=== PATIENT | female | born 1975 | race Caucasian/White ===

== ENCOUNTER 2019-04-15 20:13 | Inpatient (IN) | payer MEDICAID ==
[~2019-04-15] VITALS: Ht 157.5 cm; Wt 112.9 kg
--- NOTE | ~2019-04-15 | EC ---
PATIENT:FLORENCIO SCHMID DATE OF SERVICE: 04/15/19 SEX: F MEDICAL RECORD: [id number] DATE OF : [birth year] LOCATION:D.[facility] AGE OF PATIENT: 43 ADMISSION DATE: 04/15/19 REFERRING PHYSICIAN: INTERPRETING PHYSICIAN: HERMAN HARRISON MD ECHOCARDIOGRAM REPORT ECHO CHARGES 4 ECHO COMPLETE Date: 04/18/19 CLINICAL DIAGNOSIS: R/O ENDOCARDITIS ECHOCARDIOGRAPHIC MEASUREMENTS (adult normal given) AC root (d.<3.7cm) 3.2 cm LV Septum d (<1.2 cm> 1.5 cm Valve Excursion 2.3 cm LV Septum (systole) 1.9 cm Left Atria (s.<4.0cm> 3.4 cm LVPW d(<1.2cm) 1.4 cm RV (d.<2.3cm) 2.3 cm LVPW (sytole) 2.0 cm LV diastole(<5.6CM) 5.2 cm MV E-F(>70mm/sec) cm LV systole 2.9 cm LVOT Diameter 2.0 cm MV exc.(>10mm) cm Est.ejection fraction (50-75%) % DOPPLER: LVIT cm/sec A 86.0 cm/sec E 125 cm/sec LA cm/sec RVSP 33.2 mmHg LVOT 123 cm/sec AOP1/2T m/s Asc. Ao 158 cm/sec RVOT 57.0 cm/sec RA cm/sec PA 79.0 cm/sec AV Gradient Peak 10.0 mmHg AV Mean 5.2 mmHg AV Area 2.5 cm MV Gradient Peak 5.4 mmHg MV Mean 2.4 mmHg MV Area cm COMMENTS: Steel Detailer: 1 SUMAYA JOAQUINOE Resident Buyer: 3 Dr. Hwang TAPE# PACS Pericardial Effusion N DATE OF SERVICE: Adequate 2D, color flow, spectral Doppler, and M-mode. LVH is present. LV internal dimensions are normal. Wall motion is normal. EF is greater than or equal to 55%. Aortic valve is tricuspid. No evidence of stenosis by Doppler interrogation. Left atrium normal at 3.4 cm. Mitral valve shows no prolapse. Trace MR. Right-sided chambers are grossly normal. Trace TR. No evidence of endocarditis in all 4 cardiac valves. TRANSINT:[id number] Voice Confirmation ID: [id number] DOCUMENT ID: [id number] ECHOCARDIOGRAM REPORT [id number] FLORENCIO SCHMID GREGORY A MD CC: [id number] DICTATION DATE: 04/19/19 1029 CHANGE MANAGEMENT COORDINATOR: 04/19/19 1231 ADM IN [facility] [address] [id number]
[2019-04-15] MEDS ORDERED: PROTONIX20 MG (20:19)
[2019-04-15] MEDS ORDERED: ALBUTEROL SULF8.5 GM INH (20:19)
[2019-04-15] MEDS ORDERED: COZAAR25 MG PO (20:20)
[2019-04-15] MEDS ORDERED: CARAFATE1 G PO (20:20)
[2019-04-15] MEDS ORDERED: ZOLOFT50 MG PO (20:20)
--- NOTE | 2019-04-15 20:20 | NUR ---
PT AMBULATORY TO BATHROOM AT THIS TIME. PT CHANGED INTO GOWN AT THIS TIME.
--- NOTE | 2019-04-15 21:10 | NUR ---
DR MUNGUIA DENIES NEED FOR NG TUBE AT THIS TIME
[2019-04-15] MEDS ORDERED: CLARITIN 10 MG10 MG PO (22:30)
[2019-04-15] MEDS ORDERED: ZYRTEC10 MG PO (22:31)
[2019-04-15 22:53] VITALS: BP 120/64; BMI 45.6
--- NOTE | 2019-04-15 23:12 | NUR ---
ADMISSION ASSESSMENT COMPLETE.
[2019-04-16 01:14] VITALS: BP 103/54
[2019-04-16 04:54] LABS: BASOPHILS 0.1 % (0-2); EOSINOPHILS 0.1 % (0-7); HEMATOCRIT 33.6 % (36.0-48.0); HEMOGLOBIN 10.9 g/dL (12-16); IMMATURE GRANULOCYTES 0.2 % (0-5); LYMPHOCYTES 7.8 % (15-50); MCH 28.2 pg (26.0-34.0); MCHC 32.4 g/dL (31.0-37.0); MCV 86.8 fL (80.0-100.0); MEAN PLATELET VOLUME 8.7 fL (7.4-10.4); NEUTROPHILS 85.8 % (40-80); PLATELET COUNT 175 10x3/uL (130-400); RBC 3.87 10x6/uL (4.00-5.40); RDW 14.3 % (11.5-14.5); WBC 11.9 10x3/uL (4.8-10.8)
[2019-04-16 05:00] LABS: ANION GAP 7.4 mmol/L (8-16); CALCIUM 8.3 mg/dL (8.5-10.1); CARBON DIOXIDE 28.1 mmol/L (21.0-32.0); CREATININE - SERUM 0.9 mg/dL (0.6-1.3); POTASSIUM - SERUM 3.5 mmol/L (3.5-5.1)
[2019-04-16 05:16] VITALS: BP 111/50
[2019-04-16 08:16] VITALS: BP 128/70
--- NOTE | 2019-04-16 10:41 | NUR ---
PT ALERT X 4. BREATH SOUNDS CLEAR BILAT, 2L O2 PER NC. IV TO RIGHT AC, SALINE LOCKED. IV TO LEFT AC, PATENT, DRESSING CDI. PT REPORTING PAIN OF 8/10, POMOLOGY TEACHER IN PLACE, REMINDED PT TO USE POMOLOGY TEACHER NEEDED, WILL MONITOR. BOWEL SOUNDS HYPOACTIVE TO ALL PULLIAM, TENDER TO LEFT SIDE. PT GIVEN WATER AND APPLE JUICE. BED LOW, CALL LIGHT IN REACH. NO OTHER NEEDS AT THIS TIME.
[2019-04-16 12:49] VITALS: BP 125/72
--- NOTE | 2019-04-16 13:34 | NUR ---
IV TO RIGHT FOREARM INFILTRATED. MOVED LINE BACK TO LEFT AC. IV TO RIGHT FOREARM DC'D TIP INTACT.
[2019-04-16 16:41] VITALS: BP 126/74
--- NOTE | 2019-04-16 19:47 | NUR ---
PATIENT TEMPERATURE 102.0. RECEIVED IN REPORT THAT [facility] HAD CALLED AND REPORTED THAT PATIENT HAD GRAM POSITIVE COCCI IN CLUSTERS. NO CULTURES OBTAINED YET. PAGED DR. RAMSEY TO RELAY INFORMATION.
[2019-04-16 20:00] VITALS: BP 124/76
--- NOTE | 2019-04-16 20:15 | NUR ---
DR. RAMSEY RETURNED PAGE. RECEIVED ORDERS FOR BLOOD AND URINE CULTURES WELL URINALYSIS. ALSO RECEIVED ORDERS FOR TYLENOL 650 MG EVERY FOUR HOURS. RECEIVED ORDERS TO DC FLAGYL AFTER CURRENT ADMINISTRATION IS FINISHED AND TO DC LEVAQUIN AND START VANCO 1 GM Q 12 (PHARM TO DOSE) AND MERREM 1G Q 8. INSTRUCTED PATIENT ON CLEAN CATCH URINE SAMPLE AND TO NOTIFY NURSE WHEN PATIENT HAS LEFT SAMPLE IN CLEAN [place] HAT. ALSO DISCUSSED MEDICATIONS WITH PATIENT. PT VERBALIZES UNDERSTANDING.
--- NOTE | 2019-04-16 21:35 | NUR ---
TEMPERATURE NOW 98.9
[2019-04-16 22:07] LABS: COLOR STRAW (YELLOW)
[2019-04-16 22:08] LABS: APPEARANCE CLEAR (CLEAR); BILIRUBIN NEGATIVE (NEGATIVE); GLUCOSE NEGATIVE (NEGATIVE); KETONE NEGATIVE (NEGATIVE); NITRITE NEGATIVE (NEGATIVE); PROTEIN NEGATIVE (NEGATIVE); UROBILINOGEN NORMAL (NORMAL)
[2019-04-16 22:09] LABS: BACTERIA FEW /hpf (NONE SEEN); EPITHELIAL CELLS 0-5 /hpf (0-5); RED CELLS - URINE OCC /hpf (0-5); WHITE CELLS - URINE OCC /hpf (0-5)
[2019-04-17] VITALS: BP 111/57
--- NOTE | 2019-04-17 03:41 | NUR ---
I have reviewed this patient and I concur with the Shift Assessment completed by the Licensed Practical Nurse today this shift.
[2019-04-17 04:00] VITALS: BP 142/67
[2019-04-17 04:07] LABS: BASOPHILS 0.1 % (0-2); EOSINOPHILS 0.5 % (0-7); HEMATOCRIT 32.5 % (36.0-48.0); HEMOGLOBIN 10.4 g/dL (12-16); IMMATURE GRANULOCYTES 0.3 % (0-5); LYMPHOCYTES 17.1 % (15-50); MCV 87.4 fL (80.0-100.0); MONOCYTES 7.3 % (2-11); NEUTROPHILS 74.7 % (40-80); PLATELET COUNT 182 10x3/uL (130-400); RBC 3.72 10x6/uL (4.00-5.40); RDW 14.2 % (11.5-14.5)
[2019-04-17 04:21] LABS: CALCIUM 8.4 mg/dL (8.5-10.1); CARBON DIOXIDE 28.7 mmol/L (21.0-32.0); CREATININE - SERUM 0.9 mg/dL (0.6-1.3); POTASSIUM - SERUM 3.7 mmol/L (3.5-5.1)
--- NOTE | 2019-04-17 04:55 | NUR ---
LEFT AC IV LEAKING. D/C'D WITH TIP INTACT/ RESITED A 22G TO THE RIGHT UPPER FOREARM. ATTEMPTED 2 WITH 20G BUT VEINS COULD NOT SUSTAIN ABD "BLEW". PATIENT REPEATEDLY STATED SHE IS A "HARD STICK" AND HAD CHEST PORT AT ONE TIME. RIGHT UPPER ARM IS PATENT AND FLUSHES WELL WITH GOOD RETURN.
[2019-04-17 08:20] VITALS: BP 128/65
--- NOTE | 2019-04-17 08:24 | NUR ---
PT ALERT X 4. BREATH SOUNDS CLEAR BILAT, 2L O2 PER NC. ABDOMEN TENDER TO LEFT SIDE. PT REPORTING PAIN OF 6/10, TRACTOR MECHANIC APPRENTICE IN PLACE, WILL MONITOR. FAMILY AT BEDSIDE. BED LOW, CALL LIGHT IN REACH. NO OTHER NEEDS AT THIS TIME
[2019-04-17 12:39] VITALS: BP 129/66
[2019-04-17 13:38] VITALS: Ht 157.5 cm; Wt 112.9 kg
--- NOTE | 2019-04-17 17:10 | NUR ---
PT AWAKENING, OPA OUT, AJAY COTA INITIATED
[2019-04-17 17:37] VITALS: BP 104/67
[2019-04-17 20:00] VITALS: BP 131/90
[2019-04-18] VITALS: BP 121/48; BP 141/95
--- NOTE | 2019-04-18 02:32 | NUR ---
2000) REC'D. AT [facility] [place] SHIFT AAQ X3.ASSISTED TO BATHROOM FATMATA WELL WITH MINIMAL ASSIST.ABDOMINAL BINDER INTACT TO SURGICAL SITE WITH MANUEL DRAIN IN PLACE DRAINING BLOOD TINGED SEROUS DRANINAGE.
[2019-04-18 04:00] VITALS: BP 121/68
[2019-04-18 05:11] LABS: CALC OSMOLALITY 282 mosm/kg (275-300); CREATININE - SERUM 0.8 mg/dL (0.6-1.3); GLUCOSE 122 mg/dL (74-106); SODIUM 143 mmol/L (136-145); UREA NITROGEN 5 mg/dL (7-18); eGFR NON AFRICAN AMERICAN 84 mL/min (90-120)
[2019-04-18 05:12] LABS: CALCIUM 8.5 mg/dL (8.5-10.1); CARBON DIOXIDE 27.3 mmol/L (21.0-32.0); CHLORIDE - SERUM 108 mmol/L (98-107)
[2019-04-18 06:37] LABS: BASOPHILS 0.2 % (0-2); EOSINOPHILS 0 % (0-7); HEMATOCRIT 31.8 % (36.0-48.0); HEMOGLOBIN 10.4 g/dL (12-16); IMMATURE GRANULOCYTES 0.4 % (0-5); LYMPHOCYTES 8.9 % (15-50); MCH 27.9 pg (26.0-34.0); MCHC 32.7 g/dL (31.0-37.0); MEAN PLATELET VOLUME 8.9 fL (7.4-10.4); MONOCYTES 6.5 % (2-11); RBC 3.73 10x6/uL (4.00-5.40)
[2019-04-18 06:46] LABS: MCV 85.3 fL (80.0-100.0); PLATELET COUNT 231 10x3/uL (130-400); WBC 12.8 10x3/uL (4.8-10.8)
--- NOTE | 2019-04-18 08:07 | NUR ---
I have reviewed this patient and I concur with the Shift Assessment completed by the Licensed Practical Nurse today this shift.
--- NOTE | 2019-04-18 08:10 | OP ---
PATIENT NAME: FLORENCIO SCHMID MEDICAL RECORD: [id number] :79 LOCATION:D.MS [id number] ADMISSION DATE:04/15/19 SURGEON: DONTA RAMSEY MD DATE OF OPERATION: 04/17/2019 PREOPERATIVE DIAGNOSES: 1. Recurrent ventral incisional hernia. 2. Bacteremia. 3. Morbid obesity. POSTOPERATIVE DIAGNOSES: 1. Recurrent ventral incisional hernia. 2. Bacteremia. 3. Morbid obesity. PROCEDURE: Ventral hernia repair with Ventralight ST 13.8- x 17.8-cm mesh. SURGEON: Donta Ramsey MD REPORT OF PROCEDURE: The patient's abdomen was prepped and draped in sterile fashion. A transverse incision was made in the left lower quadrant overlying the hernia area. Electrocautery was used to dissect through the subcutaneous tissues and we eventually encountered a hernia sac. This hernia sac was opened up and we entered the abdominal cavity. Once we dissected down this hernia sac, we could see in the abdominal cavity. There was concern on the previous CT scan of possible incarceration of the small bowel, but all the small bowel was run from the terminal ileum to the ligament of Treitz and this appeared to be normal caliber with no signs of any incarceration, strangulation, masses, or lesions. The small bowel was placed back into the abdominal cavity. We began taking the soft tissues off of the patient's fascia anteriorly, and upon doing this, we encountered multiple hernia defects in the left lower quadrant. At least 7 defects were encountered. Eventually, we unroofed all of these defects other than the most superior one and connected these, making one large defect. The defect was at least 10 cm in greatest diameter. The tissues were freed up above and below on all sides and any omentum that was adherent to the tissues were taken down using electrocautery. We eventually placed a 13.8- x 17.8-cm Ventralight ST mesh in an underlay fashion and sutured it down on all 4 sides using multiple interrupted #0 Prolenes. The mesh appeared to rest in good position. There was no sign of any bleeding. We irrigated out the wound thoroughly with normal saline. We then reapproximated the fascia using running #1 loop PDS's times 2 with good approximation of the tissue. We incorporated bites of the top layer of the fascia with this PDS. We irrigated out one last time and assured there was no sign of any bleeding, which there was none. We then placed a 15-Solomon Islander round Phil drain into the subcutaneous space and sutured it down with 2-0 Prolene. The subcutaneous tissues were all reapproximated with multiple interrupted 3-0 Vicryls and the skin was closed with running subcutaneous 5-0 Monocryl. We dressed the wound and then placed an abdominal binder. COMPLICATIONS: None. CONDITION: Stable. ANESTHESIA: General endotracheal and local. OPERATIVE REPORT [id number] FLORENCIO SCHMID BLOOD LOSS: 50 mL. TRANSINT:[id number] Voice Confirmation ID: [id number] DOCUMENT ID: [id number] DONTA RAMSEY MD at 0810 CC: [id number] DICTATION DATE: 04/17/19 1635 ELECTRIC MOTOR MECHANIC: 04/17/19 1848 ADM IN [facility] [address] [place] [address]
--- NOTE | 2019-04-18 08:45 | NUR ---
AWAKE AND ALERT. ORIENTED X3. UP TO BSC WITH ONE PERSON ASSIST. VOIDED CLEAR YELLOW URINE WITHOUT DIFFICULTY. SKIN CARE PER STAFF. REPOSITIONED IN BED FOR COMFORT. LUNGS ARE CLEAR BUT DIMINISHED THROUGHOUT. SAT WAS 86% WHILE UP TO BSC WITHOUT O2. WILL MONITOR. SKIN IS INTACT WITHOUT REDNESS XCEPT INCISION TO LEFT LOWER QUAD WHICH HAS A DRY INTACT DRESSING IN PLACE. MANUEL PATENT WITH SEROUS SANGUINESS DRAINAGE NOTED. IV TO LEFT FOREARM PATENT WITHOUT REDNESS AT INSERTION SITE. INSTRUCTED IN USE OF IS WA. DENIES NEEDS. BREAKFAST TRAY ORDERED WITH REGULAR DIET.
[2019-04-18 08:48] VITALS: BP 110/59
--- NOTE | 2019-04-18 11:10 | NUR ---
IV TO LEFT WRIST INFILTRATED. D/C WITH CATHETER INTACT. WARM MOIST HEAT APPLIED TO AREA. RESITED TO RIGHT FOREARM AFTER ONE ATTEMPT WITH 22G.
--- NOTE | 2019-04-18 13:05 | NUR ---
REQUESTED AND GIVEN ONE HYDROCODONE PO FOR C/O RIGHT LEG PAIN LEVEL 10. WILL MONITOR.
--- NOTE | 2019-04-18 13:26 | NUR ---
AMBULATED 50 FEET WITH PT. CLEARED FOR UP AD ROB
[2019-04-18 13:47] VITALS: BP 127/47
[2019-04-18 16:44] VITALS: BP 114/51
--- NOTE | 2019-04-18 19:34 | NUR ---
ATE ALL OF SUPPER. NO CHANGES NOTED. DENIES NEEDS.
[2019-04-18 22:24] VITALS: BP 97/514
[2019-04-19 03:48] VITALS: BP 103/57
--- NOTE | 2019-04-19 05:00 | NUR ---
I have reviewed this patient and I concur with the Shift Assessment completed by the Licensed Practical Nurse today this shift.
[2019-04-19 06:49] VITALS: BP 109/56
[2019-04-19 07:20] LABS: BASOPHILS 0.1 % (0-2); EOSINOPHILS 2.2 % (0-7); HEMATOCRIT 30.6 % (36.0-48.0); HEMOGLOBIN 9.9 g/dL (12-16); IMMATURE GRANULOCYTES 0.2 % (0-5); LYMPHOCYTES 12.3 % (15-50); MCH 27.8 pg (26.0-34.0); MCHC 32.4 g/dL (31.0-37.0); MONOCYTES 7.5 % (2-11); NEUTROPHILS 77.7 % (40-80); PLATELET COUNT 242 10x3/uL (130-400); RBC 3.56 10x6/uL (4.00-5.40); RDW 14.2 % (11.5-14.5); WBC 9.6 10x3/uL (4.8-10.8)
--- NOTE | 2019-04-19 07:33 | NUR ---
AWAKE AND ALERT. ORIENTED X3. NO C/O AT THIS TIME. LUNGS ARE CLEAR BUT DIMINISHED THROUGHOUT BUT IMPROVED FROM YESTERDAY. SKIN IS INTACT WTIHOUT REDNESS EXCEPT INCISION TO LEFT LOWER QUAD WHICH HAS A DRY INTACT DRESSING IN PLACE. MANUEL PATENT WITH SEROUS SANGUINESS DRAINAGE NOTED. IV TO RIGHT FOREARM IS PATENT WTIIHOUT REDNESS AT INSERTION SITE. DENIES NEEDS. VISITOR AT BEDSIDE.
[2019-04-19 07:37] LABS: CALC OSMOLALITY 281 mosm/kg (275-300); CALCIUM 8.1 mg/dL (8.5-10.1); CARBON DIOXIDE 26.9 mmol/L (21.0-32.0); CHLORIDE - SERUM 106 mmol/L (98-107); CREATININE - SERUM 0.8 mg/dL (0.6-1.3); GLUCOSE 97 mg/dL (74-106); POTASSIUM - SERUM 3.2 mmol/L (3.5-5.1); SODIUM 142 mmol/L (136-145); UREA NITROGEN 9 mg/dL (7-18); eGFR NON AFRICAN AMERICAN 84 mL/min (90-120)
[2019-04-19 09:37] VITALS: BP 85/43
[2019-04-19 10:17] VITALS: BP 85/43
[2019-04-19] MEDS ORDERED: HYDROCODON-ACE1 EA10 PO (13:02)
[2019-04-19] MEDS ORDERED: CIPRO500 MG PO (13:03)
--- NOTE | 2019-04-19 15:11 | MORECARE ---
CASE MANAGEMENT DISCHARGE SUMMARY PATIENT: FLORENCIO SCHMID UNIT: [id number] ADM DATE: 04/15/19 AGE: 43 : [birth year] SEX: F ROOM/BED: D.2202 AUTHOR: GREYSON DELANEY PHYSICIAN: REFERRING PHYSICIAN: DONTA RAMSEY MD DATE OF SERVICE: 04/19/19 Discharge Plan Patient Name: FLORENCIO SCHMID Facility: [facility]:[place] : 1975 Planned Disposition: Home Health Service Anticipated Discharge Date: Discharge Date: Expected LOS: Initial Reviewer: [email or web address] Initial Review Date: 04/15/2019 Generated: 04/19/19 4:10 pm Comments DCP- Discharge Planning Updated by [email or web address]: Kathi Hayes on 04/19/19 2:[address] Patient Name: FLORENCIO SCHMID Admission Status: ER Accout number: [id number] Admission Date: 04-15-2019 : 1975 Admission Diagnosis:OTHER AND UNSP VENTRAL HERNIA WITH OBSTRUCTION, W/O ELIAZAR Attending: DONTA RAMSEY Current LOS: 4 Anticipated DC Date: Planned Disposition: Home Health Service Primary Insurance: [facility] PRIVATE OPTIONS [facility] Discharge Planning Comments: CM met with patient to complete initial dc planning assessment. CM educated patient on the CM role and verbal consent given by patient to complete assessment. Patient lives at home in [place] with her where she is independent with her care. At discharge patient plans to return home and feels this is a safe discharge. CM discussed availability of home health, rehab services, and medical equipment. She is current with [facility] in [place] and has home o2 and portable o[place] [facility] [place]. Her will be the one to drive her home. Patient denied known discharge needs at this time. CM will continue to follow and will assist as needed with dc plans/needs. Sand Mill Grinder: Kathi Hayes DCPIA - Discharge Planning Initial Assessment Updated by [email or web address]: Kathi Hayes on 04/19/19 3:03 pm * Is the patient Alert and Oriented? Yes * How many steps to enter\exit or inside your home? * [facility] * Pharmacy [facility] * Preadmission Environment Home with Family * ADLs Independent * Equipment Oxygen * Other Equipment PORTABLE AND HOME O2 * List name and contact numbers for known caregivers / representatives who currently or will assist patient after discharge: JOHN [phone] * Verbal permission to speak to the caregivers and representatives has been obtained from the patient. N/A * Community resources currently utilized None * Additional services required to return to the preadmission environment? No * Can the patient safely return to the preadmission environment? Yes * Has this patient been hospitalized within the prior 30 days at any hospital? No External Providers External Provider: [facility] Next Contact Date: Service Request Date: Service Type: Resolution: Reviewer: Comments: Coverage Notice Reviewer: [email or web address] Ronnell Hayes Notice Issued Date-Time: 04/19/2019 15:00 Notice Type: Patient Choice Letter Notice Delivered To: Patient Relationship to Patient: Solar Sales Energy Advisor Name: Delivery Method: HAND - Hand Delivered Annalee Days: Prior Verbal Notification: Recipient Understood Notice: Yes Recipient Signature: Yes Med Rec Note Co-signed by Attending: Coverage Notice Comment: mary jo to continue with [facility] in [place] and dme Patient Name: FLORENCIO SCHMID Page [phone] at 1511 All edits/amendments must be made on the electronic document DICTATION DATE: 04/19/191509 DEVICE TEST ENGINEER: DEEPAK 04/19/191509 RPT#: [id number] DC DATE: STATUS: ADM IN [facility] [address] [place] [address] END OF REPORT
--- NOTE | 2019-04-19 15:18 | MORECARE ---
CASE MANAGEMENT DISCHARGE SUMMARY PATIENT: FLORENCIO SCHMID UNIT: [id number] ADM DATE: 04/15/19 AGE: 43 : [birth year] SEX: F ROOM/BED: D.220 AUTHOR: GREYSON DELANEY PHYSICIAN: REFERRING PHYSICIAN: DONTA RAMSEY MD DATE OF SERVICE: 04/19/19 Discharge Plan Patient Name: FLORENCIO SCHMID Facility: [facility]:[place] : 1975 Planned Disposition: Home Health Service Anticipated Discharge Date: Discharge Date: Expected LOS: Initial Reviewer: [email or web address] Initial Review Date: 04/15/2019 Generated: 04/19/19 4:18 pm Comments DCP- Discharge Planning Updated by [email or web address]: Kathi Hayes on 04/19/19 2:[address] spoke with Maura at [employer] to let her know that the patient will be discharging home DCP- Discharge Planning Updated by [email or web address]: Kathi Hayes on 04/19/19 2:[address] Patient Name: FLORENCIO SCHMID Admission Status: ER Accout number: [id number] Admission Date: 04-15-2019 : 1975 Admission Diagnosis:OTHER AND UNSP VENTRAL HERNIA WITH OBSTRUCTION, W/O ELIAZAR Attending: DONTA RAMSEY Current LOS: 4 Anticipated DC Date: Planned Disposition: Home Health Service Primary Insurance: [place] PRIVATE OPTIONS [facility] Discharge Planning Comments: CM met with patient to complete initial dc planning assessment. CM educated patient on the CM role and verbal consent given by patient to complete assessment. Patient lives at home in [place] with her where she is independent with her care. At discharge patient plans to return home and feels this is a safe discharge. CM discussed availability of home health, rehab services, and medical equipment. She is current with [facility] in [place] and has home o2 and portable o2 from [facility] in [place]. Her will be the one to drive her home. Patient denied known discharge needs at this time. CM will continue to follow and will assist as needed with dc plans/needs. Elevator Examiner And Adjuster: Kathi Hayes DCPIA - Discharge Planning Initial Assessment Updated by [email or web address]: Kathi Hayes on 04/19/19 3:03 pm * Is the patient Alert and Oriented? Yes * How many steps to enter\exit or inside your home? * PCP [facility] * [facility]acy [facility] * Preadmission Environment Home with Family * ADLs Independent * Equipment Oxygen * Other Equipment PORTABLE AND HOME O2 * List name and contact numbers for known caregivers / representatives who currently or will assist patient after discharge: JOHN [phone] * Verbal permission to speak to the caregivers and representatives has been obtained from the patient. N/A * Community resources currently utilized None * Additional services required to return to the preadmission environment? No * Can the patient safely return to the preadmission environment? Yes * Has this patient been hospitalized within the prior 30 days at any hospital? No Coverage Notice Reviewer: [email or web address] Ronnell Hayes Notice Issued Date-Time: 04/19/2019 15:00 Notice Type: Patient Choice Letter Notice Delivered To: Patient Relationship to Patient: Straight Cutter Name: Delivery Method: HAND - Hand Delivered Annalee Days: Prior Verbal Notification: Recipient Understood Notice: Yes Recipient Signature: Yes Med Rec Note Co-signed by Attending: Coverage Notice Comment: mary jo to continue with [facility] [place] and dme Last DP export: 04/19/19 2:11 p Patient Name: FLORENCIO SCHMID Page [phone] at 1518 All edits/amendments must be made on the electronic document DICTATION DATE: 04/19/191517 PLANT PROTECTION SUPERVISOR: DEEPAK 04/19/198 RPT#: [id number] DC DATE: STATUS: ADM IN [facility] [address] [place] [address] END OF REPORT
--- NOTE | 2019-04-19 15:30 | NUR ---
DISCHARGED TO HOME AMBULATORY WITH . DISCHARGE INSTRUCTIONS GIVEN BOTH VERBALLY AND WRITTEN. ALL QUESTIONS ANSWERED. PATIENT VERBALIZED UNDERSTANDING OF SAME. NEEDED PRESCRIPTIONS GIVEN TO PATIENT. IV TO RIGHT FOREARM D/C WITH CATHETER INTACT. ALL BELONGINGS WITH PATIENT.
== END 2019-04-19 15:30 | disposition home or self-care (01) | DRG 354 ==
LOC: D.ER 20:13 → D.MS 21:26 → D.SDCHOLD 04-17 10:19 → D.MS 04-17 10:25
PROVIDERS: ADMIT Surgery; ATTEND Surgery
PROC: 0WUF4JZ Supplement Abdominal Wall with Synthetic Substitute, Percutaneous Endoscopic Approach (ICD-10-PCS; principal; 2019-04-17 10:15)
DX: K43.6 Other and unspecified ventral hernia with obstruction, without gangrene (principal); Z68.41 Body mass index [BMI] 40.0-44.9, adult; R78.81 Bacteremia; E66.01 Morbid (severe) obesity due to excess calories; J44.9 Chronic obstructive pulmonary disease, unspecified

== ENCOUNTER 2019-05-29 04:23 | Inpatient (IN) | payer MEDICAID ==
[~2019-05-29] VITALS: Ht 157.5 cm; Wt 108.9 kg
--- NOTE | ~2019-05-29 | DS ---
PATIENT:FLORENCIO SCHMID :[birth year] MEDICAL RECORD: [id number] DISCHARGE SUMMARY ADMISSION DATE: 05/29/19 DISCHARGE DATE: 06/01/19 DATE OF ADMISSION: 05/29/2019 DATE OF DISCHARGE: 06/01/2019. ADMISSION DIAGNOSES: 1. Left lower quadrant fluid collection status post ventral hernia repair. 2. Sepsis. 3. Chronic obstructive pulmonary disease. 4. Morbid obesity. DISCHARGE DIAGNOSES: 1. Left lower quadrant fluid collection status post ventral hernia repair. 2. Sepsis. 3. Chronic obstructive pulmonary disease. 4. Morbid obesity. PROCEDURE: CT-guided subcutaneous drain placement with removal of 600 mL of cloudy, not purulent fluid on 05/29/2019. REPORT OF HOSPITALIZATION: The patient was admitted to the hospital through the ER with fevers up to 102 with signs of sepsis and a large fluid collection on CT scan overlying a recent hernia repair with mesh. The patient was set up with interventional radiology for CT-guided drainage of this left lower quadrant fluid collection which removed 600 mL of cloudy serous fluid. The patient was placed on vancomycin for some cellulitis to the skin. The patient's condition improved significantly. Eventually, the fluid that was present grew out some gram-positive cocci consistent with Staphylococcus. The patient was eventually set up for discharge home with the drain in place as it was putting out about 200 mL per day of clear serous fluid. There was no sign of any recurrence of the hernia, and with the patient pain and overall condition improving significantly, she was felt to be stable for discharge home. She was tolerating a diet well with no nausea or vomiting. DISCHARGE INSTRUCTIONS: Return to clinic or call with any questions or concerns, fevers, chills, nausea, vomiting, or worsening abdominal pain. ACTIVITIES: No heavy lifting or straining for 6 weeks status-post surgery. DISCHARGE MEDICATIONS: Resume home meds with the inclusion of doxycycline 100 mg p.o. q.12 hours. TRANSINT:[id number] Voice Confirmation ID: [id number] DOCUMENT ID: [id number] DISCHARGE SUMMARY REPORT [id number] FLORENCIO SCHMID CHRISTIAN MD CC: [id number] DICTATION DATE: 08/08/19 1359 SHOE DESIGNER: 08/09/19 0020 DIS IN 06/01/19 [place] [address]
[~2019-05-29 04:23] MED LIST: ALBUTEROL SULF8.5 GM INH; CARAFATE1 G PO; CIPRO500 MG PO; CLARITIN 10 MG10 MG PO; COZAAR25 MG PO; HYDROCODON-ACE1 EA10 PO; PROTONIX20 MG PO; ZOLOFT50 MG PO; ZYRTEC10 MG PO
[2019-05-29 06:05] VITALS: BP 92/57; BMI 44.0
--- NOTE | 2019-05-29 06:18 | NUR ---
ADMISSION ASSESSMENT COMPLETE. LLQ REDDENED AND SWOLLEN. NO OPENING OR DRAINAGE. PT REPORTS ELEVATED TEMP STARTING THE NIGHT SHE HAD MANUEL DRAIN REMOVED, 1 WEEK AGO. HAS HAD FEVER, NAUSEA AND DECREASED APPETITE SINCE.
[2019-05-29] MEDS ORDERED: KLONOPIN0.5 MG PO (06:25)
[2019-05-29] MEDS ORDERED: SYMBICORT 16010.2 GM INH (06:26)
--- NOTE | 2019-05-29 07:00 | NUR ---
ALERT AND ORIENTED, RESTING IN BED. NO C/O PAIN. NO S/S OF ACUTE DISTRESS NOTED. ON 2L O2, NC. LLQ REDNESS AND SWELLING. IV TO LEFT AC, NS INFUSING @ 125ML/HR. SITE PATENT WITHOUT REDNESS OR SWELLING. DILAUDID PETROLEUM REFINING FIRER MANAGING PAIN AT THIS TIME. PT DENIES ANY NEEDS AT THIS TIME. CALL LIGHT IN REACH. WILL CONTINUE TO MONITOR.
[2019-05-29 08:15] VITALS: BP 88/50
--- NOTE | 2019-05-29 10:47 | NUR ---
I have reviewed this patient and I concur with the Shift Assessment completed by the Licensed Practical Nurse today this shift.
[2019-05-29 11:31] LABS: BASOPHILS 0.1 % (0-2); EOSINOPHILS 0.9 % (0-7); HEMATOCRIT 27.9 % (36.0-48.0); HEMOGLOBIN 8.8 g/dL (12-16); IMMATURE GRANULOCYTES 1.4 % (0-5); MCH 27.2 pg (26.0-34.0); MCHC 31.5 g/dL (31.0-37.0); MCV 86.4 fL (80.0-100.0); MEAN PLATELET VOLUME 7.9 fL (7.4-10.4); MONOCYTES 6.4 % (2-11); NEUTROPHILS 83.2 % (40-80); RBC 3.23 10x6/uL (4.00-5.40); RDW 15.1 % (11.5-14.5); WBC 15.4 10x3/uL (4.8-10.8)
[2019-05-29 11:34] LABS: CALC OSMOLALITY 272 mosm/kg (275-300); CALCIUM 8.6 mg/dL (8.5-10.1); CARBON DIOXIDE 27.8 mmol/L (21.0-32.0); CHLORIDE - SERUM 102 mmol/L (98-107); CREATININE - SERUM 0.8 mg/dL (0.6-1.3); GLUCOSE 101 mg/dL (74-106); PLATELET COUNT 533 10x3/uL (130-400); POTASSIUM - SERUM 3.9 mmol/L (3.5-5.1); SODIUM 137 mmol/L (136-145); UREA NITROGEN 9 mg/dL (7-18); eGFR NON AFRICAN AMERICAN 84 mL/min (90-120)
[2019-05-29 11:39] LABS: APTT 31.1 SECONDS (22.8-39.4); INR 1.38 (0.85-1.17); PROTIME 16.4 SECONDS (11.6-15.0)
[2019-05-29 12:53] VITALS: Ht 157.5 cm; Wt 108.9 kg
[2019-05-29 17:30] VITALS: BP 130/78
[2019-05-29 18:34] VITALS: BP 122/64
--- NOTE | 2019-05-29 20:00 | NUR ---
A/O WITH NO SIGNS OF ACUTE DISTRESS. IV TO THE LT AC WITH NO REDNESS OR SWELLING NOTED. O2 @2L VIA NC. DRAIN NOTED TO THE RLQ WITH SEROSANGUINEOUS DISCHARGE. SOME REDNESS AND SWELLING NOTED IN THE LOWER ABDOMEN. CALLED MD TO NOTIFY OF PENICILLIN ALLERGY. WAS TOLD TO CANCEL ZOZYN ORDER AND JUST GIVE VANC. DENIES FURTHER NEEDS. CONTINUE WITH PLAN OF CARE.
[2019-05-29 20:34] VITALS: BP 148/74
[2019-05-29 23:35] LABS: APPEARANCE SL CLDY (CLEAR); BILIRUBIN NEGATIVE (NEGATIVE); COLOR DK YELLOW (YELLOW); GLUCOSE NEGATIVE (NEGATIVE); KETONE NEGATIVE (NEGATIVE); NITRITE NEGATIVE (NEGATIVE); PROTEIN 1+ mg/dL (NEGATIVE); UROBILINOGEN NORMAL (NORMAL)
[2019-05-29 23:36] LABS: BACTERIA MODERATE /hpf (NEGATIVE); EPITHELIAL CELLS 0-5 /hpf (0-5); HYALINE CAST 0-5 /lpf (NONE SEEN); RED CELLS - URINE 0-5 /hpf (0-5)
--- NOTE | 2019-05-30 | NUR ---
NOTIFIED TEMP OF 100. ENCOURAGED IS, COOL FLUIDS AND REMOVED BLANKET. WLL CONTINUE TO MONITOR.
[2019-05-30 00:42] VITALS: BP 130/67
[2019-05-30 04:52] VITALS: BP 126/88
--- NOTE | 2019-05-30 07:05 | NUR ---
ALERT AND ORIENTED, RESTING IN BED. NO C/O PAIN. NO S/S OF ACUTE DISTRESS NOTED. DRAIN TO LEFT LOWER ABDOMEN, REDNESS PRESENT TO ABDOMEN. DRAINAGE RED AND YELLOW IN COLOR. ON 2L O2, NC. IV TO LEFT AC, NS INFUSING @ 125ML/HR. SITE PATENT WITHOUT REDNESS OR SWELLING. DILAUDID CONSULTING PSYCHIATRIST MANAGING PAIN AT THIS TIME. PT DENIES ANY NEEDS AT THIS TIME. CALL LIGHT IN REACH. WILL CONTINUE TO MONITOR.
[2019-05-30 07:55] VITALS: BP 138/66
[2019-05-30 09:13] LABS: BASOPHILS 0.2 % (0-2); EOSINOPHILS 1.8 % (0-7); HEMATOCRIT 27.2 % (36.0-48.0); HEMOGLOBIN 8.3 g/dL (12-16); IMMATURE GRANULOCYTES 1.9 % (0-5); LYMPHOCYTES 11.4 % (15-50); MCH 26.9 pg (26.0-34.0); MCHC 30.5 g/dL (31.0-37.0); MONOCYTES 8.6 % (2-11); NEUTROPHILS 76.1 % (40-80); PLATELET COUNT 539 10x3/uL (130-400); RBC 3.09 10x6/uL (4.00-5.40); RDW 15.2 % (11.5-14.5)
[2019-05-30 09:18] LABS: WBC 10.4 10x3/uL (4.8-10.8)
[2019-05-30 09:30] LABS: CALC OSMOLALITY 268 mosm/kg (275-300); CALCIUM 8.2 mg/dL (8.5-10.1); CARBON DIOXIDE 28.4 mmol/L (21.0-32.0); CHLORIDE - SERUM 101 mmol/L (98-107); CREATININE - SERUM 0.7 mg/dL (0.6-1.3); GLUCOSE 108 mg/dL (74-106); POTASSIUM - SERUM 3.9 mmol/L (3.5-5.1); SODIUM 135 mmol/L (136-145); eGFR NON AFRICAN AMERICAN > 90 mL/min (90-120)
[2019-05-30 09:33] LABS: UREA NITROGEN 6 mg/dL (7-18)
[2019-05-30 13:30] VITALS: BP 141/83
[2019-05-30 18:24] VITALS: BP 123/66
--- NOTE | 2019-05-30 18:45 | NUR ---
I have reviewed this patient and I concur with the Shift Assessment completed by the Licensed Practical Nurse today this shift.
--- NOTE | 2019-05-30 18:49 | NUR ---
ALERT AND ORIENTED, SITTING UP IN CHAIR. NO C/O PAIN. NO S/S OF ACUTE DISTRESS NOTED. CALL LIGHT IN REACH. PT DENIES ANY NEEDS AT THIS TIME.
--- NOTE | 2019-05-30 20:00 | NUR ---
A/O WITH NO SIGNS OF ACUTE DISTRESS WITH NC @2L. DRAIN NOTED TO THE LLQ WITH SEROSANGUINEOUS DISCHARGE. SWELLING AND REDNESS NOTED TO THE LOWER ABDOMEN. IV TO THE RT WRIST, CDI. DENIES FURTHER NEEDS. CONTINUE WITH PLAN OF CARE.
[2019-05-30 20:45] VITALS: BP 143/74
[2019-05-31 01:05] VITALS: BP 119/56
[2019-05-31 04:56] VITALS: BP 129/69
[2019-05-31 06:53] LABS: BASOPHILS 0.3 % (0-2); EOSINOPHILS 2.8 % (0-7); HEMATOCRIT 27.3 % (36.0-48.0); HEMOGLOBIN 8.4 g/dL (12-16); IMMATURE GRANULOCYTES 2.4 % (0-5); LYMPHOCYTES 15.8 % (15-50); MCHC 30.8 g/dL (31.0-37.0); MCV 87.8 fL (80.0-100.0); MONOCYTES 7.2 % (2-11); NEUTROPHILS 71.5 % (40-80); PLATELET COUNT 565 10x3/uL (130-400); RBC 3.11 10x6/uL (4.00-5.40); RDW 15.1 % (11.5-14.5)
[2019-05-31 06:56] LABS: CALC OSMOLALITY 279 mosm/kg (275-300); CALCIUM 8.1 mg/dL (8.5-10.1); CARBON DIOXIDE 29.3 mmol/L (21.0-32.0); CHLORIDE - SERUM 105 mmol/L (98-107); CREATININE - SERUM 0.7 mg/dL (0.6-1.3); GLUCOSE 140 mg/dL (74-106); POTASSIUM - SERUM 3.4 mmol/L (3.5-5.1); SODIUM 141 mmol/L (136-145); UREA NITROGEN 5 mg/dL (7-18); VANCOMYCIN - TROUGH 10.7 ug/mL (10.0-20.0); eGFR NON AFRICAN AMERICAN > 90 mL/min (90-120)
[2019-05-31 06:57] LABS: WBC 6.1 10x3/uL (4.8-10.8)
--- NOTE | 2019-05-31 07:35 | NUR ---
ALERT AND ORIENTED. LUNGS CLEAR BIALTERALLY IN ALL PULLIAM. HEART SOUNDS S1 AND S2 HEARD IN ALL PULLIAM. BOWEL SOUNDS ACTIVE X 4. REDNESS AND SWELLING TO BENNETT AREA AND LLQ. DRAIN PATENT TO LLQ WITH SEROSANGUENOUS DRAINAGE. DENIES NEEDS. BED LOW. CALL CIFUENTES AND PERSONAL ITEMS IN REACH. WILL CONTINUE TO MONITOR.
[2019-05-31 08:56] VITALS: BP 131/70
--- NOTE | 2019-05-31 09:27 | NUR ---
IV INFILTRATED TO RIGHT WRIST AFTER FLUSHING WITH SALINE, PRIOR TO ADMINISTERING VANCOMYCIN. WILL ATTEMPT TO RESITE BEFORE STARTING VANCOMYCIN.
--- NOTE | 2019-05-31 09:41 | NUR ---
IV RESITED TO RFA. VANCOMYCIN RUNNING. WILL CONTINUE TO MONITOR.
--- NOTE | 2019-05-31 11:24 | NUR ---
RESTING IN BED. DENIES PAIN. DENIES NEEDS. WILL CONTINUE TO MONITOR.
[2019-05-31 11:54] VITALS: BP 149/74
--- NOTE | 2019-05-31 13:58 | NUR ---
Nutrition follow-up: Pt reports her appetite is improving; states she ate ~75% of lunch today Labs reviewed WT: 240# s/p surgery RDN following.
--- NOTE | 2019-05-31 14:33 | NUR ---
RESTING IN BED. DENIES NEEDS. WILL CONTINUE TO MONITOR.
--- NOTE | 2019-05-31 16:41 | NUR ---
SPOKE WITH DR RAMSEY ABOUT PATIENT NEEDING TYLENOL. STATES WILL ADD TO MAR.
[2019-05-31 17:28] VITALS: BP 154/82
--- NOTE | 2019-05-31 20:10 | NUR ---
LYING IN BED. ALERT AND ORIENTED X4. ABD IS RED, WARM AND SWOLLEN. DRAIN NOTED TO LLQ WITH SEROUS FLUID IN BAG. O2 @ 2L/NC. RESP NONLABORED. REFUSES SCDS. SALINE LOCK NOTED TO RT FOREARM. MEDICATED WITH NORCO FOR C/O ABD PAIN. CL IN REACH.
[2019-05-31 20:55] VITALS: BP 140/78
[2019-06-01 01:10] VITALS: BP 124/69
[2019-06-01 05:56] VITALS: BP 132/68
[2019-06-01 08:16] VITALS: BP 124/68
--- NOTE | 2019-06-01 08:36 | NUR ---
AWAKE AND ALERT. ORIENTED X3. NO C/O AT THIS TIME. LUNGS ARE CLEAR BILATERALLY, NO COUGH NOTED. SKIN IS INTACT WTIHOUT REDNESS EXCEPT ACROSS LOWER ABDOMEN. IV TO RIGHT FOREARM IS PATETN WTIHOUT REDNESS AT INSERTION SITE. ABDOMEN IS DISTENDED AND FIRM WITH HYPOACTIVE BOWEL SOUNDS. AT BEDSIDE. DENIES NEEDS. BREAKFAST SERVED IN ROOM.
--- NOTE | 2019-06-01 10:30 | NUR ---
IV TO RIGHT FOREARM LEAKING. ATTEPT TO RESITE TO LEFT FA UNSUCCESSFUL. IV TO RIGHT FORARM REDRESSED AND NOT LEAKING AT THIS TIME. WILL MONITOR.
[2019-06-01 11:52] VITALS: BP 146/79
[2019-06-01] MEDS ORDERED: DOXYCYCLINE HY100 M2 PO (15:00)
[2019-06-01 17:17] VITALS: BP 132/75
--- NOTE | 2019-06-01 17:40 | NUR ---
DISCHARGED TO HOME AMBULATORY WITH . DISCHARGE INSTRUCTIONS GIVEN BOTH VERBALLY AND WRITTEN. ALL QUESTIONS ANSWERED. PATIENT VERBALIZED UNDERSTANDING OF SAME. NEEDED PRESCRIPTIONS ESCRIBED TO PHARMACY OF CHOICE. TEACHING FOR DRAIN CARE COMPLETED. ALL QUESTIONS ANSWERED. SUPPLIES SENT WITH PATIENT. SL TO RIGHT FOREARM D/C WITH CATHERTER INTACT. ALL BELONGINGS WITH PATIENT.
== END 2019-06-01 17:43 | disposition home or self-care (01) | DRG 919 ==
LOC: D.M2 04:23 → D.MS 05:50
PROVIDERS: General Practice; ADMIT Surgery; ATTEND Surgery
PROC: 0J9830Z Drainage of Abdomen Subcutaneous Tissue and Fascia with Drainage Device, Percutaneous Approach (ICD-10-PCS; principal; 2019-05-29 16:00)
DX: L76.34 Postprocedural seroma of skin and subcutaneous tissue following other procedure (principal); A41.9 Sepsis, unspecified organism; L03.311 Cellulitis of abdominal wall; Z68.41 Body mass index [BMI] 40.0-44.9, adult; D64.9 Anemia, unspecified; E66.01 Morbid (severe) obesity due to excess calories; J44.9 Chronic obstructive pulmonary disease, unspecified; I10 Essential (primary) hypertension; B95.61 Methicillin susceptible Staphylococcus aureus infection as the cause of diseases classified elsewhere